=== PATIENT | female | born 2000 | race African-American/Black ===

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

== ENCOUNTER 2021-08-10 13:46 | Emergency (ER) | payer OTHER ==
[~2021-08-10] VITALS: Ht 154.9 cm; Wt 45.0 kg
[2021-08-10] MEDS ORDERED: PENICILLIN G BENZATHINE 1,200,000 UNITS/2ML SYR IM STA (14:33)
[2021-08-10] MEDS ORDERED: KETOROLAC 60MG/2ML VIAL IM STA (14:33)
[2021-08-10] MEDS ORDERED: IBUP-2029 PO (14:52)
[2021-08-10] MEDS ORDERED: AMOX-494 PO (14:52)
[2021-08-10 15:20] VITALS: BP 126/72
== END 2021-08-10 15:21 | disposition home or self-care (01) ==
LOC: ER 13:46
DX: J03.90 Acute tonsillitis, unspecified (principal); J45.909 Unspecified asthma, uncomplicated
CPT/HCPCS: 96372; 99284; J0561; J1885

== ENCOUNTER 2024-02-09 20:13 | Emergency (ER) | payer MEDICAID, OTHER ==
[~2024-02-09] VITALS: Ht 154.9 cm; Wt 52.0 kg
[~2024-02-09 20:13] MED LIST changes: +AMOX-494 PO; +IBUP-2029 PO
[2024-02-09 21:00] VITALS: BP 119/77; PULSE 81; RESP 18; TEMP 98.7; O2SAT 100
== END 2024-02-09 21:57 | disposition left against medical advice (07) ==
LOC: ER 20:13
DX: M79.644 Pain in right finger(s) (principal); Z53.21 Procedure and treatment not carried out due to patient leaving prior to being seen by health care provider
CPT/HCPCS: 99281

== ENCOUNTER 2024-08-27 13:45 | Emergency (ER) | payer MEDICAID ==
[~2024-08-27] VITALS: Ht 154.9 cm; Wt 49.8 kg
[2024-08-27 14:22] VITALS: O2SAT 98
[2024-08-27] MEDS: DEXAMETHASONE 10 MG/ML VIAL IV ONE (14:38)
[2024-08-27] MEDS ORDERED: TOPUD MT (15:24)
[2024-08-27 15:31] VITALS: BP 124/81; PULSE 76; RESP 16; TEMP 36.61404; O2SAT 98
== END 2024-08-27 16:06 | disposition home or self-care (01) ==
LOC: ER 13:45
DX: J02.9 Acute pharyngitis, unspecified (principal); J45.909 Unspecified asthma, uncomplicated
CPT/HCPCS: 87430; 87070; 96374; 99283; J1100; Z7610

== ENCOUNTER 2025-06-27 03:10 | Emergency (ER) | payer MEDICAID, OTHER ==
[~2025-06-27] VITALS: Ht 154.9 cm; Wt 49.0 kg
[~2025-06-27 03:10] MED LIST changes: +TOPUD MT
[2025-06-27 03:40] VITALS: O2SAT 83
[2025-06-27] MEDS: ACETAMINOPHEN 325MG TABLET PO ONE (03:58)
[2025-06-27] MEDS: ACETAMINOPHEN 650MG/20.3ML UDC PO ONE (04:43)
[2025-06-27] MEDS ORDERED: TOPUD MT (05:23)
[2025-06-27 05:35] VITALS: BP 98/61; PULSE 96; RESP 15; TEMP 36.9; O2SAT 100
== END 2025-06-27 05:35 | disposition home or self-care (01) ==
LOC: ER 03:10
DX: J02.0 Streptococcal pharyngitis (principal); J45.909 Unspecified asthma, uncomplicated; F10.90 Alcohol use, unspecified, uncomplicated; Y90.9 Presence of alcohol in blood, level not specified
CPT/HCPCS: 87430; 99283